=== PATIENT | male | born 1960 | race Hispanic/Latino ===

== ENCOUNTER → 2019-04-06 | Outpatient (CLI) | payer OTHER | END | disposition home or self-care (01) | LOC: RAH 10:12 | PROVIDERS: ATTEND Internal Medicine Cardiovascular Disease | DX: Z13.6 Encounter for screening for cardiovascular disorders (principal) | CPT/HCPCS: 75571 ==

== ENCOUNTER → 2019-04-13 | Outpatient (CLI) | payer OTHER | END | disposition home or self-care (01) | LOC: SHCH 10:47 | PROVIDERS: ATTEND Internal Medicine Cardiovascular Disease | DX: I08.0 Rheumatic disorders of both mitral and aortic valves (principal); I10 Essential (primary) hypertension | CPT/HCPCS: 93306 ==

== ENCOUNTER → 2019-05-25 | Outpatient (CLI) | payer OTHER ==
[~2019-05-25] VITALS: Ht 172.7 cm; Wt 98.4 kg
[~2019-05-25] MED LIST: REGADENOSON 0.4 MG/5 ML PF SYG IVP SCH
== END | disposition home or self-care (01) ==
LOC: SHCH 07:52
PROVIDERS: ATTEND Internal Medicine Cardiovascular Disease
DX: I25.10 Atherosclerotic heart disease of native coronary artery without angina pectoris (principal)
CPT/HCPCS: 78452; 93017; 96374; A9500 ×2; J2785

== ENCOUNTER 2020-11-07 08:02 | Day surgery (SDC) | payer BC, OTHER ==
[2020-11-07] VITALS (7 sets, daily range): BP systolic 104–129; BP diastolic 44–68
[~2020-11-07 08:02] MED LIST changes: +NACL 0.9% 1000ML 1,000 ML IV ONE; -REGADENOSON 0.4 MG/5 ML PF SYG IVP SCH
[2020-11-07 08:43] LABS: CREATININE 7.7 mg/dL (0.5-1.5); POTASSIUM 5.2 mmol/L (3.5-5.1)
[2020-11-07] MEDS ORDERED: ISOS30TA92 PO (09:03)
[2020-11-07] MEDS ORDERED: FENO145T26 PO (09:03)
[2020-11-07] MEDS ORDERED: FURO20TA4 PO (09:03)
[2020-11-07] MEDS ORDERED: INSU100I45 SQ (09:03)
[2020-11-07] MEDS ORDERED: INSU100V12 SQ ×2 (09:03)
[2020-11-07] MEDS ORDERED: FEBU80TA3 PO (09:03)
[2020-11-07] MEDS ORDERED: AURYXIA PO (09:03)
[2020-11-07] MEDS ORDERED: AEC81 PO (09:03)
[2020-11-07] MEDS ORDERED: METO-408 PO (09:03)
[2020-11-07] MEDS ORDERED: PROPOFOL 10 MG/ML 20ML VIAL IV ONE ×2 (09:36)
== END 2020-11-07 10:30 | disposition home or self-care (01) ==
LOC: ENDO 08:02 → DAH 08:11 → ENDO 08:11
PROVIDERS: ATTEND Internal Medicine Gastroenterology
DX: R12 Heartburn (principal); R93.3 Abnormal findings on diagnostic imaging of other parts of digestive tract; K29.70 Gastritis, unspecified, without bleeding; K21.00 Gastro-esophageal reflux disease with esophagitis, without bleeding; K29.80 Duodenitis without bleeding; E11.22 Type 2 diabetes mellitus with diabetic chronic kidney disease; I12.0 Hypertensive chronic kidney disease with stage 5 chronic kidney disease or end stage renal disease; N18.6 End stage renal disease; E78.00 Pure hypercholesterolemia, unspecified; Z20.822 Contact with and (suspected) exposure to COVID-19; Z79.4 Long term (current) use of insulin; Z79.82 Long term (current) use of aspirin; Z79.899 Other long term (current) drug therapy
CPT/HCPCS: 36415; 43239; 80048; 82948 ×2; 87635; A4215 ×2; A4221; A4222; A4223; A4606; A4620; A4657; A4663; C9803; J2704 ×2; J7030

== ENCOUNTER 2022-02-03 23:16 | Inpatient (IN) | payer MEDICARE ==
[~2022-02-03] VITALS: Ht 172.7 cm; Wt 95.3 kg
[~2022-02-03 23:16] MED LIST changes: +AEC81 PO; +AURYXIA PO; +FEBU80TA3 PO; +FENO145T26 PO; +FURO20TA4 PO; +INSU100I45 SQ; +INSU100V12 SQ; +ISOS30TA92 PO; +METO-408 PO; -NACL 0.9% 1000ML 1,000 ML IV ONE; +ROSU20TA31 PO
[2022-02-03] MEDS ORDERED: ADENOSINE 6MG VIAL IV ONE ×2 (23:44→23:51)
[2022-02-03] MEDS ORDERED: AMIODARONE 150MG VIAL ONE ×2 (23:45→23:57)
[2022-02-03] MEDS ORDERED: DILTIAZEM 25MG INJ IVP ONE ×2 (23:48→23:59)
[2022-02-04] VITALS (17 sets, daily range): BP systolic 106–143; BP diastolic 54–77
[2022-02-04 00:26] LABS: BASOPHILS % (AUTO) 0.9 % (0.0-5.0); EOSINOPHILS % (AUTO) 3.1 % (0.0-8.0); HEMATOCRIT 30.4 % (42-54); LYMPHOCYTES % (AUTO) 10.2 % (21.0-51.0); MEAN CORPUSCULAR HGB CONC 33.6 g/dL (32.0-36.0); MEAN CORPUSCULAR VOLUME 95.3 fL (79-99); MONOCYTES % (AUTO) 7.7 % (3.0-13.0); NEUTROPHILS % (AUTO) 77.6 % (40.0-77.0); PLATELET COUNT (AUTO) 172 K/uL (130-400); RED BLOOD CELL COUNT(AUTO) 3.19 MIL/uL (4.50-6.20); WHITE BLOOD COUNT (AUTO) 8.7 K/uL (4.8-10.8)
[2022-02-04 00:49] LABS: ALBUMIN 3.2 g/dL (3.5-5.0); POTASSIUM 5.5 mmol/L (3.5-5.1); TOTAL PROTEIN, SERUM 7.3 g/dL (6.0-8.3)
[2022-02-04 00:53] LABS: CREATININE 10.2 mg/dL (0.5-1.5)
[2022-02-04] MEDS ORDERED: ONDANSETRON 4MG INJ IVP PRN (03:30)
[2022-02-04] MEDS ORDERED: INSULIN HUMULIN R 100 UNIT/ML 3ML SQ PRN (03:30)
[2022-02-04] MEDS ORDERED: MORPHINE 2 MG SYG IVP PRN (03:30)
[2022-02-04] MEDS: HEPARIN 5,000 UNIT VIAL SQ SCH ×2 (04:52→17:09)
[2022-02-04] MEDS: ACETAMINOPHEN 325 MG TAB PO PRN ×3 (07:54→19:28)
[2022-02-04 08:21] LABS: EOSINOPHILS % (AUTO) 4.7 % (0.0-8.0); HEMATOCRIT 33.3 % (42-54); MEAN CORPUSCULAR HEMOGLOBIN 31.7 pg (27.0-33.0); MEAN CORPUSCULAR HGB CONC 33.3 g/dL (32.0-36.0); MEAN CORPUSCULAR VOLUME 95.1 fL (79-99); MONOCYTES % (AUTO) 7.2 % (3.0-13.0); NEUTROPHILS % (AUTO) 74.8 % (40.0-77.0); PLATELET COUNT (AUTO) 173 K/uL (130-400); RED CELL DISTRIBUTION WIDTH 13.1 % (11.0-15.5); WHITE BLOOD COUNT (AUTO) 7.7 K/uL (4.8-10.8)
[2022-02-04 08:30] LABS: HEMOGLOBIN A1C 6.6 % (4.0-6.0)
[2022-02-04 08:37] LABS: MAGNESIUM 2.3 mg/dL (1.80-2.40); POTASSIUM 5.2 mmol/L (3.5-5.1)
[2022-02-04 08:39] LABS: CREATININE 10.5 mg/dL (0.5-1.5)
[2022-02-04 10:05] LABS: APPEARANCE,URINE CLEAR (CLEAR); BILIRUBIN,URINE NEGATIVE (NEGATIVE); COLOR,URINE LIGHT-YELLOW (YELLOW); GLUCOSE, URINE (UA) 200 mg/dL (NEGATIVE); KETONES,URINE NEGATIVE (NEGATIVE); LEUKOCYTE ESTERASE ,URINE NEGATIVE Leu/uL (NEGATIVE); NITRATE,URINE NEGATIVE (NEGATIVE); PH,URINE 7.5 (5.0-8.0); PROTEIN,URINE 100 mg/dL (NEGATIVE); UROBILINOGEN,URINE 0.2 mg/dL (0.2-1.0)
[2022-02-04 10:06] LABS: RBC,URINE 0-1 /HPF (0-1); WBC,URINE 0-1 /HPF (0-1)
[2022-02-04] MEDS ORDERED: ROSU10TA28 PO (10:24)
[2022-02-04] MEDS ORDERED: SACU1TAB PO (10:24)
[2022-02-04] MEDS ORDERED: LOPERAMIDE HCL 2 MG CAP PO ONE (10:30)
[2022-02-04] MEDS: ASPIRIN 81 MG EC TAB PO SCH (10:45)
[2022-02-04] MEDS: INSULIN HUMULIN R 100 UNIT/ML 3ML SQ SCH ×3 (11:30→20:44)
[2022-02-04] MEDS ORDERED: VANCOMYCIN PROTOCOL PER PHARMACY IV SCH (17:30)
[2022-02-04] MEDS ORDERED: VANCOMYCIN 1.5 GM/250 ML BAG 250 ML IV SCH (18:00)
[2022-02-04] MEDS: ZOSYN 3.375GM +NS 50ML IV SCH (18:27)
[2022-02-04] MEDS ORDERED: COMPOUND IV REFRIGERATED 1 EACH IVSOLN MISC PRN (18:30)
[2022-02-04] MEDS: ATORVASTATIN 20 MG TABLET PO SCH (20:44)
[2022-02-04] MEDS: SACUBITRIL/VALSARTAN 1 EACH TABLET PO SCH (20:44)
[2022-02-04] MEDS ORDERED: ISOSORBIDE MONO 30MG SR TAB PO SCH (21:00)
[2022-02-05] VITALS (8 sets, daily range): BP systolic 92–118; BP diastolic 43–65
[2022-02-05 01:17] LABS: HEPATITIS B SURFACE ANTIGEN Non-Reactive (Nonreactive)
[2022-02-05] MEDS: HEPARIN 5,000 UNIT VIAL SQ SCH ×2 (03:23→15:52)
[2022-02-05] MEDS: ZOSYN 3.375GM +NS 50ML IV SCH ×2 (05:25→17:30)
[2022-02-05 06:52] LABS: POTASSIUM 4.8 mmol/L (3.5-5.1)
[2022-02-05 06:55] LABS: CREATININE 8.3 mg/dL (0.5-1.5)
[2022-02-05] MEDS: INSULIN HUMULIN R 100 UNIT/ML 3ML SQ SCH ×4 (07:30→20:38)
[2022-02-05] MEDS: FUROSEMIDE 20 MG TABLET PO SCH (08:19)
[2022-02-05] MEDS: ASPIRIN 81 MG EC TAB PO SCH (08:19)
[2022-02-05] MEDS: METOPROLOL SUCCINATE 25 MG TAB.SR.24H PO SCH (08:19)
[2022-02-05] MEDS: SACUBITRIL/VALSARTAN 1 EACH TABLET PO SCH ×2 (09:00→20:39)
[2022-02-05] MEDS ORDERED: REGADENOSON 0.4 MG/5 ML PF SYG IVP SCH (10:00)
[2022-02-05] MEDS ORDERED: IOHEXOL 350 MG/ML 100ML INFUS..BTL IV ONE (11:34)
[2022-02-05] MEDS: ATORVASTATIN 20 MG TABLET PO SCH (20:39)
[2022-02-06] VITALS (18 sets, daily range): BP systolic 98–141; BP diastolic 47–65
[2022-02-06] MEDS: HEPARIN 5,000 UNIT VIAL SQ SCH ×2 (03:45→15:57)
[2022-02-06] MEDS: ZOSYN 3.375GM +NS 50ML IV SCH ×2 (06:13→17:47)
[2022-02-06] MEDS: INSULIN HUMULIN R 100 UNIT/ML 3ML SQ SCH ×4 (06:13→22:11)
[2022-02-06] MEDS: SACUBITRIL/VALSARTAN 1 EACH TABLET PO SCH ×2 (08:39→20:33)
[2022-02-06] MEDS: ASPIRIN 81 MG EC TAB PO SCH (08:39)
[2022-02-06] MEDS: FUROSEMIDE 20 MG TABLET PO SCH (08:39)
[2022-02-06] MEDS: METOPROLOL SUCCINATE 25 MG TAB.SR.24H PO SCH (13:27)
[2022-02-06] MEDS: ATORVASTATIN 20 MG TABLET PO SCH (20:33)
[2022-02-07 03:51] VITALS: BP 111/66
[2022-02-07] MEDS: HEPARIN 5,000 UNIT VIAL SQ SCH ×2 (06:16→16:07)
[2022-02-07] MEDS: ZOSYN 3.375GM +NS 50ML IV SCH ×2 (06:16→16:48)
[2022-02-07] MEDS: INSULIN HUMULIN R 100 UNIT/ML 3ML SQ SCH ×4 (06:16→20:55)
[2022-02-07 07:30] VITALS: BP 95/44
[2022-02-07] MEDS: METOPROLOL SUCCINATE 25 MG TAB.SR.24H PO SCH (09:00)
[2022-02-07] MEDS: FUROSEMIDE 20 MG TABLET PO SCH (09:00)
[2022-02-07] MEDS: ASPIRIN 81 MG EC TAB PO SCH (09:00)
[2022-02-07] MEDS: SACUBITRIL/VALSARTAN 1 EACH TABLET PO SCH ×2 (09:00→20:50)
[2022-02-07 11:00] VITALS: BP 120/54
[2022-02-07 16:00] VITALS: BP 99/47
[2022-02-07 20:14] VITALS: BP 118/65
[2022-02-07] MEDS: ATORVASTATIN 20 MG TABLET PO SCH (20:50)
[2022-02-07] MEDS: METOCLOPRAMIDE 10 MG TABLET PO SCH (20:50)
[2022-02-07 23:34] VITALS: BP 111/63
[2022-02-08] VITALS (19 sets, daily range): BP systolic 89–136; BP diastolic 44–67
[2022-02-08 04:42] LABS: HEMATOCRIT 33.6 % (42-54); MEAN CORPUSCULAR HEMOGLOBIN 31.4 pg (27.0-33.0); MEAN CORPUSCULAR HGB CONC 33.9 g/dL (32.0-36.0); MEAN CORPUSCULAR VOLUME 92.6 fL (79-99); RED BLOOD CELL COUNT(AUTO) 3.63 MIL/uL (4.50-6.20); RED CELL DISTRIBUTION WIDTH 12.7 % (11.0-15.5)
[2022-02-08 05:01] LABS: MAGNESIUM 2.4 mg/dL (1.80-2.40); POTASSIUM 4.4 mmol/L (3.5-5.1)
[2022-02-08 05:02] LABS: CREATININE 9.4 mg/dL (0.5-1.5)
[2022-02-08] MEDS: ZOSYN 3.375GM +NS 50ML IV SCH (05:25)
[2022-02-08] MEDS: HEPARIN 5,000 UNIT VIAL SQ SCH (05:32)
[2022-02-08] MEDS: INSULIN HUMULIN R 100 UNIT/ML 3ML SQ SCH ×2 (06:53→11:30)
[2022-02-08] MEDS: METOPROLOL SUCCINATE 25 MG TAB.SR.24H PO SCH (09:00)
[2022-02-08] MEDS: SACUBITRIL/VALSARTAN 1 EACH TABLET PO SCH (09:42)
[2022-02-08] MEDS: METOCLOPRAMIDE 10 MG TABLET PO SCH ×2 (09:43→12:00)
[2022-02-08] MEDS: FUROSEMIDE 20 MG TABLET PO SCH (09:43)
[2022-02-08] MEDS: ASPIRIN 81 MG EC TAB PO SCH (12:00)
[2022-02-08] MEDS ORDERED: METO10TA41 PO ×2 (16:56→16:58)
== END 2022-02-08 18:20 | disposition home or self-care (01) | DRG 193 ==
LOC: EDH 23:16 → EDHIP 02-04 03:22 → 4CH 02-04 11:03 → 4DH 02-08 14:00 → 4CH 02-08 14:01
PROVIDERS: ADMIT Internal Medicine Infectious Disease; ATTEND Internal Medicine Infectious Disease
PROC: 5A1D70Z Performance of Urinary Filtration, Intermittent, Less than 6 Hours Per Day (ICD-10-PCS; 2022-02-04)
PROC: 5A1D70Z Performance of Urinary Filtration, Intermittent, Less than 6 Hours Per Day (ICD-10-PCS; principal; 2022-02-06)
PROC: 5A1D70Z Performance of Urinary Filtration, Intermittent, Less than 6 Hours Per Day (ICD-10-PCS; 2022-02-08)
DX: J18.9 Pneumonia, unspecified organism (principal); N18.6 End stage renal disease; I13.2 Hypertensive heart and chronic kidney disease with heart failure and with stage 5 chronic kidney disease, or end stage renal disease; E87.1 Hypo-osmolality and hyponatremia; I25.110 Atherosclerotic heart disease of native coronary artery with unstable angina pectoris; N39.0 Urinary tract infection, site not specified; I50.42 Chronic combined systolic (congestive) and diastolic (congestive) heart failure; Z20.822 Contact with and (suspected) exposure to COVID-19; E87.5 Hyperkalemia; E11.22 Type 2 diabetes mellitus with diabetic chronic kidney disease; K31.84 Gastroparesis; E11.43 Type 2 diabetes mellitus with diabetic autonomic (poly)neuropathy; D63.1 Anemia in chronic kidney disease; T46.2X5A Adverse effect of other antidysrhythmic drugs, initial encounter; I95.2 Hypotension due to drugs; E66.9 Obesity, unspecified; E78.00 Pure hypercholesterolemia, unspecified; Z99.2 Dependence on renal dialysis; Z83.3 Family history of diabetes mellitus; Z82.49 Family history of ischemic heart disease and other diseases of the circulatory system; Z68.31 Body mass index [BMI] 31.0-31.9, adult
CPT/HCPCS: 36415; 71045; 71270; 78264; 78452; 80048; 80053; 81001; 82550; 82948; 83036; 83605; 83690; 83735; 83874; 84484; 85025; 85027; 86706; 87040; 87077; 87088; 87186; 87340; 87635; 87804; 90935; 93005; 93017; 93306; 93356; 96374; A9500; A9541; C9803; G0378; J0153; J0282; J1644; J1815; J2405; J2543; J2785; J3490; Q9967

== ENCOUNTER → 2022-05-27 | Outpatient (CLI) | payer MEDICARE ==
[~2022-05-27] MED LIST changes: +METO10TA41 PO; +ROSU10TA28 PO; -ROSU20TA31 PO; +SACU1TAB PO
[2022-05-27 09:43] LABS: CREATININE 5.5 mg/dL (0.5-1.5)
== END | disposition home or self-care (01) ==
LOC: LAB 08:43
PROVIDERS: ATTEND Otolaryngology Plastic Surgery within the Head & Neck
DX: H90.3 Sensorineural hearing loss, bilateral (principal)
CPT/HCPCS: 36415; 82565; 84520

== ENCOUNTER → 2022-06-11 | Outpatient (CLI) | payer MEDICARE ==
[~2022-06-11] MED LIST changes: +IOHEXOL 350 MG/ML 100ML INFUS..BTL IV ONE
== END | disposition home or self-care (01) ==
LOC: RAH 11:49
PROVIDERS: ATTEND Otolaryngology Plastic Surgery within the Head & Neck
DX: H90.3 Sensorineural hearing loss, bilateral (principal)
CPT/HCPCS: 70470; 70482; Q9967

== ENCOUNTER 2022-11-05 16:08 | Inpatient (IN) | payer MEDICARE ==
[~2022-11-05] VITALS: Ht 167.6 cm; Wt 89.6 kg
[~2022-11-05 16:08] MED LIST changes: -IOHEXOL 350 MG/ML 100ML INFUS..BTL IV ONE
[2022-11-05] MEDS ORDERED: ACETAMINOPHEN 500 MG TABLET ONE (16:57)
[2022-11-05] MEDS ORDERED: CEFTRIAXONE 2GM VIAL IVPB ONE (17:00)
[2022-11-05] MEDS ORDERED: 0.9%NACL 1000ML 250 ML IV ONE (17:00)
[2022-11-05] MEDS ORDERED: ACETAMINOPHEN 500 MG TABLET PO ONE (17:30)
[2022-11-05 17:36] LABS: BASOPHILS % (AUTO) 0.6 % (0.0-5.0); EOSINOPHILS % (AUTO) 0.9 % (0.0-8.0); HEMATOCRIT 28.9 % (42-54); LYMPHOCYTES % (AUTO) 5.3 % (21.0-51.0); MEAN CORPUSCULAR HEMOGLOBIN 32.3 pg (27.0-33.0); MEAN CORPUSCULAR HGB CONC 32.2 g/dL (32.0-36.0); MEAN CORPUSCULAR VOLUME 100.3 fL (79-99); MONOCYTES % (AUTO) 7.5 % (3.0-13.0); NEUTROPHILS % (AUTO) 84.8 % (40.0-77.0); PLATELET COUNT (AUTO) 110 K/uL (130-400); RED BLOOD CELL COUNT(AUTO) 2.88 MIL/uL (4.50-6.20); RED CELL DISTRIBUTION WIDTH 14.8 % (11.0-15.5); WHITE BLOOD COUNT (AUTO) 12.7 K/uL (4.8-10.8)
[2022-11-05 17:56] LABS: POTASSIUM 4.5 mmol/L (3.5-5.1)
[2022-11-05 18:05] LABS: ALBUMIN 3.3 g/dL (3.5-5.0); TOTAL PROTEIN, SERUM 7.7 g/dL (6.0-8.3)
[2022-11-05] MEDS ORDERED: MORPHINE 2 MG SYG IVP PRN (19:00)
[2022-11-05] MEDS ORDERED: ASPIRIN 325MG TAB PO ONE (19:00)
[2022-11-05] MEDS ORDERED: ACETAMINOPHEN 325 MG TAB PO PRN ×2 (19:00→20:30)
[2022-11-05] MEDS ORDERED: ENOXAPARIN SODIUM 100 MG/1 ML SQ ONE (19:00)
[2022-11-05] MEDS ORDERED: 0.9%NACL 1000ML 1,914 ML IV ONE (19:00)
[2022-11-05] MEDS ORDERED: CLOPIDOGREL 300MG TAB PO ONE (19:00)
[2022-11-05] MEDS ORDERED: NOREPINEPHRIN 4MG/NS 250ML 250 ML IV SCH ×2 (19:30→21:30)
[2022-11-05 19:37] LABS: ABG BASE EXCESS -1.1 mmol/L (-2.0-3.0); ABG OXYGEN SATURATION 95.4 % (95.0-99.0); ABG PCO2 35 mmHg (35-48)
[2022-11-05 19:44] LABS: INR 1.24 (0.85-1.15); PROTHROMBIN TIME 13.4 SEC (9.6-11.6)
[2022-11-05 19:45] LABS: PARTIAL THROMBOPLASTIN TIME 35.6 SEC (26.3-35.5)
[2022-11-05] MEDS: HEPARIN 25,000 UNITS/250ML D5W 250 ML IV SCH (20:20)
[2022-11-05] MEDS ORDERED: HEPARIN 5,000 UNIT VIAL SQ PRN (20:30)
[2022-11-05] MEDS ORDERED: PHENYLEPHRINE HCL 10 MG in 0.9% NACL 250ML 250 ML IV PRN (20:30)
[2022-11-05] MEDS ORDERED: DEXTROSE 50%-WATER 50 ML DISP.SYRIN IV PRN (20:30)
[2022-11-05] MEDS ORDERED: ACETAMINOPHEN 650 MG SUPPOSITORY RC PRN (20:30)
[2022-11-05] MEDS ORDERED: GLUCAGON 1MG KIT 1 MG ML IM PRN (20:30)
[2022-11-05] MEDS: CEFTRIAXONE 1G VIAL IVPB SCH (20:48)
[2022-11-05] MEDS: 0.9%NACL 1000ML 1,000 ML IV SCH (20:49)
[2022-11-05] MEDS: ATORVASTATIN 40 MG TABLET PO SCH (20:49)
[2022-11-05] MEDS: DOXYCYCLINE 100MG+NS 250ML IV SCH (20:49)
[2022-11-05] MEDS: INSULIN HUMULIN R 100 UNIT/ML 3ML SQ SCH (21:00)
[2022-11-06] VITALS (13 sets, daily range): BP systolic 97–135; BP diastolic 47–68
[2022-11-06] MEDS: HEPARIN 25,000 UNITS/250ML D5W 250 ML IV SCH (03:30)
[2022-11-06] MEDS: 0.9%NACL 1000ML 1,000 ML IV SCH ×2 (06:29→16:21)
[2022-11-06 07:27] LABS: BASOPHILS % (AUTO) 0.8 % (0.0-5.0); EOSINOPHILS % (AUTO) 3.3 % (0.0-8.0); HEMATOCRIT 31.6 % (42-54); LYMPHOCYTES % (AUTO) 8.1 % (21.0-51.0); MEAN CORPUSCULAR HEMOGLOBIN 32.2 pg (27.0-33.0); MEAN CORPUSCULAR HGB CONC 31.3 g/dL (32.0-36.0); MEAN CORPUSCULAR VOLUME 102.9 fL (79-99); MONOCYTES % (AUTO) 9.1 % (3.0-13.0); NEUTROPHILS % (AUTO) 77.8 % (40.0-77.0); PLATELET COUNT (AUTO) 121 K/uL (130-400); RED BLOOD CELL COUNT(AUTO) 3.07 MIL/uL (4.50-6.20); RED CELL DISTRIBUTION WIDTH 15.1 % (11.0-15.5); WHITE BLOOD COUNT (AUTO) 19.3 K/uL (4.8-10.8)
[2022-11-06] MEDS: INSULIN HUMULIN R 100 UNIT/ML 3ML SQ SCH ×4 (07:30→21:00)
[2022-11-06 07:37] LABS: CREATININE 7.3 mg/dL (0.5-1.5); MAGNESIUM 1.9 mg/dL (1.80-2.40); POTASSIUM 5.2 mmol/L (3.5-5.1); TOTAL PROTEIN, SERUM 7.7 g/dL (6.0-8.3)
[2022-11-06] MEDS: CLOPIDOGREL 75MG TAB PO SCH (08:12)
[2022-11-06] MEDS: PANTOPRAZOLE 40 MG/VIAL IVP SCH (08:12)
[2022-11-06] MEDS: ASPIRIN 81 MG EC TAB PO SCH (08:12)
[2022-11-06] MEDS: DOXYCYCLINE 100MG+NS 250ML IV SCH ×2 (08:12→18:52)
[2022-11-06] MEDS: MIDODRINE HCL 5 MG TABLET PO PRN (08:13)
[2022-11-06 11:57] LABS: INR 1.4 (0.85-1.15)
[2022-11-06 12:26] LABS: PARTIAL THROMBOPLASTIN TIME 129.2 SEC (26.3-35.5)
[2022-11-06] MEDS ORDERED: ALBUMIN (HUMAN) 25% 100 ML IV PRN (14:00)
[2022-11-06] MEDS ORDERED: VANCOMYCIN PROTOCOL PER PHARMACY IV SCH (14:00)
[2022-11-06] MEDS ORDERED: VANCOMYCIN 1.5 GM/250 ML BAG 250 ML IV ONE (15:00)
[2022-11-06] MEDS ORDERED: MIDODRINE HCL 5 MG TABLET PO SCH (16:32)
[2022-11-06] MEDS ORDERED: OMEP40CA21 PO (17:42)
[2022-11-06] MEDS ORDERED: FOLI0.8T3 PO (17:42)
[2022-11-06] MEDS ORDERED: MIDO5TAB4 PO (17:42)
[2022-11-06] MEDS ORDERED: GLIP5TAB11 PO (17:42)
[2022-11-06] MEDS ORDERED: ALLO100T PO (17:42)
[2022-11-06 17:49] LABS: INR 1.45 (0.85-1.15); PROTHROMBIN TIME 15.5 SEC (9.6-11.6)
[2022-11-06 17:50] LABS: PARTIAL THROMBOPLASTIN TIME 64.6 SEC (26.3-35.5)
[2022-11-06] MEDS ORDERED: CYAN100099 PO (17:50)
[2022-11-06] MEDS ORDERED: SEVE800T27 PO (17:50)
[2022-11-06] MEDS ORDERED: MUPI22OI2 TP (17:50)
[2022-11-06] MEDS ORDERED: ROSU20TA73 PO (17:50)
[2022-11-06] MEDS ORDERED: MULT-1203 PO (17:50)
[2022-11-06] MEDS: ONDANSETRON 4MG INJ IVP PRN (18:34)
[2022-11-06] MEDS: CEFTRIAXONE 1G VIAL IVPB SCH (18:52)
[2022-11-06] MEDS: MIDODRINE HCL 5 MG TABLET PO SCH (18:54)
[2022-11-06] MEDS: ATORVASTATIN 40 MG TABLET PO SCH (18:54)
[2022-11-06 23:05] LABS: INR 1.41 (0.85-1.15); PROTHROMBIN TIME 15.1 SEC (9.6-11.6)
[2022-11-06 23:06] LABS: PARTIAL THROMBOPLASTIN TIME 67.8 SEC (26.3-35.5)
[2022-11-07] VITALS (31 sets, daily range): BP systolic 57–151; BP diastolic 17–105
[2022-11-07] MEDS ORDERED: NOREPINEPHRIN 4MG/NS 250ML 250 ML IV ONE (02:44)
[2022-11-07] MEDS: NOREPINEPHRIN 4MG/NS 250ML 250 ML IV SCH ×2 (05:00→17:18)
[2022-11-07 06:59] LABS: BASOPHILS % (AUTO) 0.8 % (0.0-5.0); EOSINOPHILS % (AUTO) 4.8 % (0.0-8.0); HEMATOCRIT 30.7 % (42-54); LYMPHOCYTES % (AUTO) 8.3 % (21.0-51.0); MEAN CORPUSCULAR HGB CONC 32.2 g/dL (32.0-36.0); MEAN CORPUSCULAR VOLUME 99.4 fL (79-99); MONOCYTES % (AUTO) 9.8 % (3.0-13.0); NEUTROPHILS % (AUTO) 75.5 % (40.0-77.0); NUCLEATED RED BLOOD CELLS 0.8 % (0.0-0.19); PLATELET COUNT (AUTO) 164 K/uL (130-400); RED BLOOD CELL COUNT(AUTO) 3.09 MIL/uL (4.50-6.20); RED CELL DISTRIBUTION WIDTH 15.2 % (11.0-15.5); WHITE BLOOD COUNT (AUTO) 21.5 K/uL (4.8-10.8)
[2022-11-07 07:13] LABS: HEMOGLOBIN A1C 5.3 % (4.0-6.0)
[2022-11-07 07:26] LABS: CREATININE 5.5 mg/dL (0.5-1.5); MAGNESIUM 1.8 mg/dL (1.80-2.40); POTASSIUM 4.5 mmol/L (3.5-5.1); THYROID STIMULATING HORMONE 2.92 uIU/mL (0.36-3.74); TOTAL PROTEIN, SERUM 7.5 g/dL (6.0-8.3)
[2022-11-07] MEDS: INSULIN HUMULIN R 100 UNIT/ML 3ML SQ SCH ×4 (07:30→21:00)
[2022-11-07] MEDS: ASPIRIN 81 MG EC TAB PO SCH (09:23)
[2022-11-07] MEDS: PANTOPRAZOLE 40 MG/VIAL IVP SCH (09:23)
[2022-11-07] MEDS: MIDODRINE HCL 5 MG TABLET PO SCH ×3 (09:23→21:33)
[2022-11-07] MEDS: CLOPIDOGREL 75MG TAB PO SCH (09:23)
[2022-11-07] MEDS: DOXYCYCLINE 100MG+NS 250ML IV SCH ×2 (09:23→21:34)
[2022-11-07 10:05] LABS: HEPATITIS B SURFACE ANTIGEN Non-Reactive (Nonreactive)
[2022-11-07] MEDS: ONDANSETRON 4MG INJ IVP PRN (13:20)
[2022-11-07] MEDS ORDERED: MAGNESIUM 2GM PREMIX 50ML 50 ML IV ONE (13:46)
[2022-11-07] MEDS: MAGNESIUM 2GM PREMIX 50ML 50 ML IV PRN (13:55)
[2022-11-07] MEDS ORDERED: NOREPINEPHRINE 16MG/NS 250ML PREMIX IV SCH (18:30)
[2022-11-07] MEDS ORDERED: PHARMACY COMMUNICATION MISC SCH (19:00)
[2022-11-07] MEDS: NOREPINEPHRINE BITARTRATE 32 MG in 0.9% NACL 250ML 250 ML IV SCH (21:07)
[2022-11-07] MEDS: ATORVASTATIN 40 MG TABLET PO SCH (21:33)
[2022-11-07] MEDS: CEFTRIAXONE 1G VIAL IVPB SCH (21:34)
[2022-11-07] MEDS: 0.9%NACL 10ML VIAL IV SCH (22:36)
[2022-11-07 23:36] LABS: INR 1.28 (0.85-1.15); PROTHROMBIN TIME 13.8 SEC (9.6-11.6)
[2022-11-07 23:38] LABS: PARTIAL THROMBOPLASTIN TIME 68.1 SEC (26.3-35.5)
[2022-11-08] VITALS (91 sets, daily range): BP systolic 49–173; BP diastolic 16–117
[2022-11-08 03:55] LABS: BASOPHILS % (AUTO) 1.1 % (0.0-5.0); EOSINOPHILS % (AUTO) 12.6 % (0.0-8.0); HEMATOCRIT 28.8 % (42-54); LYMPHOCYTES % (AUTO) 10.3 % (21.0-51.0); MEAN CORPUSCULAR HEMOGLOBIN 31.6 pg (27.0-33.0); MEAN CORPUSCULAR HGB CONC 31.6 g/dL (32.0-36.0); MONOCYTES % (AUTO) 10.6 % (3.0-13.0); NEUTROPHILS % (AUTO) 64.1 % (40.0-77.0); NUCLEATED RED BLOOD CELLS 0.6 % (0.0-0.19); PLATELET COUNT (AUTO) 156 K/uL (130-400); RED BLOOD CELL COUNT(AUTO) 2.88 MIL/uL (4.50-6.20)
[2022-11-08 04:17] LABS: ALBUMIN 2.8 g/dL (3.5-5.0); CREATININE 6.4 mg/dL (0.5-1.5); MAGNESIUM 2.1 mg/dL (1.80-2.40); POTASSIUM 3.5 mmol/L (3.5-5.1)
[2022-11-08] MEDS: INSULIN HUMULIN R 100 UNIT/ML 3ML SQ SCH ×4 (07:30→20:54)
[2022-11-08] MEDS: ASPIRIN 81 MG EC TAB PO SCH (09:00)
[2022-11-08] MEDS: MIDODRINE HCL 5 MG TABLET PO SCH ×3 (09:13→20:53)
[2022-11-08] MEDS: DOXYCYCLINE 100MG+NS 250ML IV SCH ×2 (09:13→20:53)
[2022-11-08] MEDS: CLOPIDOGREL 75MG TAB PO SCH (09:13)
[2022-11-08] MEDS: 0.9%NACL 10ML VIAL IV SCH ×2 (09:14→20:54)
[2022-11-08] MEDS: PANTOPRAZOLE 40 MG/VIAL IVP SCH (09:14)
[2022-11-08] MEDS: HEPARIN 25,000 UNITS/250ML D5W 250 ML IV SCH (10:50)
[2022-11-08] MEDS ORDERED: VANCOMYCIN 1G/250ML KIT 250 ML IV SCH (16:00)
[2022-11-08 16:11] LABS: TYPHUS FEVER IGG <1:64 (Neg:<1:64); TYPHUS FEVER IGM <1:64 (Neg:<1:64)
[2022-11-08] MEDS: NOREPINEPHRINE BITARTRATE 32 MG in 0.9% NACL 250ML 250 ML IV SCH (16:56)
[2022-11-08] MEDS: LACTULOSE 20 GM/30 ML UDCUP PO SCH ×2 (20:00→20:53)
[2022-11-08] MEDS: CEFTRIAXONE 1G VIAL IVPB SCH (20:53)
[2022-11-08] MEDS: ATORVASTATIN 40 MG TABLET PO SCH (21:20)
[2022-11-09] VITALS (62 sets, daily range): BP systolic 80–160; BP diastolic 15–112
[2022-11-09] MEDS: ONDANSETRON 4MG INJ IVP PRN ×2 (03:51→21:59)
[2022-11-09 04:23] LABS: BASOPHILS % (AUTO) 1.1 % (0.0-5.0); EOSINOPHILS % (AUTO) 13.7 % (0.0-8.0); LYMPHOCYTES % (AUTO) 11.9 % (21.0-51.0); MEAN CORPUSCULAR HEMOGLOBIN 31.5 pg (27.0-33.0); MEAN CORPUSCULAR HGB CONC 33.1 g/dL (32.0-36.0); MEAN CORPUSCULAR VOLUME 95.2 fL (79-99); MONOCYTES % (AUTO) 11.8 % (3.0-13.0); NUCLEATED RED BLOOD CELLS 1.7 % (0.0-0.19); PLATELET COUNT (AUTO) 143 K/uL (130-400); RED BLOOD CELL COUNT(AUTO) 2.73 MIL/uL (4.50-6.20); RED CELL DISTRIBUTION WIDTH 15.3 % (11.0-15.5)
[2022-11-09 04:43] LABS: CREATININE 5.2 mg/dL (0.5-1.5); MAGNESIUM 1.8 mg/dL (1.80-2.40); PHOSPHORUS 3.8 mg/dL (2.5-4.9); POTASSIUM 3.9 mmol/L (3.5-5.1); TOTAL PROTEIN, SERUM 6.7 g/dL (6.0-8.3)
[2022-11-09 04:44] LABS: INR 1.18 (0.85-1.15); PROTHROMBIN TIME 13.5 SEC (9.6-11.6)
[2022-11-09 04:45] LABS: PARTIAL THROMBOPLASTIN TIME 58.6 SEC (26.3-35.5)
[2022-11-09 05:28] LABS: ERYTHROCYTE SEDIMENTATION RATE 80 MM/HR (0-20)
[2022-11-09] MEDS: INSULIN HUMULIN R 100 UNIT/ML 3ML SQ SCH ×4 (05:35→21:00)
[2022-11-09] MEDS: NALOXONE HCL 0.4 MG/1 ML ML IVP SCH (07:30)
[2022-11-09] MEDS ORDERED: LIDOCAINE HCL 2% VISCOUS 15 ML UDCUP PO ONE (07:30)
[2022-11-09] MEDS ORDERED: MIDAZOLAM HCL 1 MG/ML 5ML VIAL IVP ONE (07:30)
[2022-11-09] MEDS ORDERED: PHARMACY COMMUNICATION MISC SCH (07:30)
[2022-11-09] MEDS ORDERED: FLUMAZENIL 0.1MG/1ML 5ML VIAL IV SCH (07:30)
[2022-11-09] MEDS ORDERED: MEPERIDINE-PF 25 MG/ML SYG IVP ONE (07:30)
[2022-11-09] MEDS ORDERED: MIDAZOLAM HCL 1 MG/ML 2ML VIAL IVP ONE (08:00)
[2022-11-09] MEDS: MIDODRINE HCL 5 MG TABLET PO SCH ×3 (08:42→21:06)
[2022-11-09] MEDS: LACTULOSE 20 GM/30 ML UDCUP PO SCH ×3 (08:42→12:29)
[2022-11-09] MEDS: CLOPIDOGREL 75MG TAB PO SCH (08:42)
[2022-11-09] MEDS: PANTOPRAZOLE 40 MG/VIAL IVP SCH (08:42)
[2022-11-09] MEDS: ASPIRIN 81 MG EC TAB PO SCH (08:42)
[2022-11-09] MEDS: DOXYCYCLINE 100MG+NS 250ML IV SCH (08:43)
[2022-11-09] MEDS: 0.9%NACL 10ML VIAL IV SCH ×2 (08:43→21:07)
[2022-11-09] MEDS ORDERED: PEG 3350/NA SULF,BICARB,CL/KCL 4000 ML SOLN PO SCH (14:00)
[2022-11-09] MEDS: NOREPINEPHRINE BITARTRATE 32 MG in 0.9% NACL 250ML 250 ML IV SCH (16:30)
[2022-11-09] MEDS ORDERED: VANCOMYCIN 1G/250ML KIT 250 ML IV SCH (17:32)
[2022-11-09] MEDS: CEFTRIAXONE 1G VIAL IVPB SCH (21:05)
[2022-11-09] MEDS: ATORVASTATIN 40 MG TABLET PO SCH (21:07)
[2022-11-10] VITALS (81 sets, daily range): BP systolic 65–148; BP diastolic 23–102
[2022-11-10 04:35] LABS: BASOPHILS % (AUTO) 1.5 % (0.0-5.0); EOSINOPHILS % (AUTO) 5.5 % (0.0-8.0); LYMPHOCYTES % (AUTO) 11.1 % (21.0-51.0); MEAN CORPUSCULAR HGB CONC 31.9 g/dL (32.0-36.0); MEAN CORPUSCULAR VOLUME 100.3 fL (79-99); NEUTROPHILS % (AUTO) 63.5 % (40.0-77.0); PLATELET COUNT (AUTO) 169 K/uL (130-400); RED BLOOD CELL COUNT(AUTO) 3.19 MIL/uL (4.50-6.20); RED CELL DISTRIBUTION WIDTH 15.8 % (11.0-15.5); WHITE BLOOD COUNT (AUTO) 20.9 K/uL (4.8-10.8)
[2022-11-10 04:58] LABS: CREATININE 6.5 mg/dL (0.5-1.5); POTASSIUM 5.1 mmol/L (3.5-5.1)
[2022-11-10] MEDS: NOREPINEPHRINE BITARTRATE 32 MG in 0.9% NACL 250ML 250 ML IV SCH (05:21)
[2022-11-10] MEDS: INSULIN HUMULIN R 100 UNIT/ML 3ML SQ SCH ×4 (05:55→20:40)
[2022-11-10] MEDS: NALOXONE HCL 0.4 MG/1 ML ML IVP SCH (07:30)
[2022-11-10] MEDS ORDERED: KETAMINE 50MG/ML SYRINGE 50 MG/ML DISP.SYRIN ONE (08:43)
[2022-11-10] MEDS ORDERED: MIDAZOLAM HCL 1 MG/ML 2ML VIAL ONE (08:43)
[2022-11-10] MEDS ORDERED: PROPOFOL 10 MG/ML 20ML VIAL IV ONE ×2 (08:43→10:03)
[2022-11-10] MEDS ORDERED: LIDOCAINE PF 100MG/5ML (2%) SYRINGE 5ML ONE (08:44)
[2022-11-10] MEDS: CLOPIDOGREL 75MG TAB PO SCH (09:00)
[2022-11-10] MEDS: PANTOPRAZOLE 40 MG/VIAL IVP SCH (09:00)
[2022-11-10] MEDS: ASPIRIN 81 MG EC TAB PO SCH (09:00)
[2022-11-10] MEDS: 0.9%NACL 10ML VIAL IV SCH ×2 (09:00→20:40)
[2022-11-10] MEDS ORDERED: 0.9%NACL 1000ML 1,000 ML IV ONE (10:33)
[2022-11-10 12:07] LABS: ALBUMIN 2.8 g/dL (3.5-5.0); CREATININE 6.3 mg/dL (0.5-1.5); TOTAL PROTEIN, SERUM 6.3 g/dL (6.0-8.3)
[2022-11-10] MEDS: MIDODRINE HCL 5 MG TABLET PO SCH ×3 (12:29→20:40)
[2022-11-10] MEDS: MIDODRINE HCL 5 MG TABLET PO PRN (12:34)
[2022-11-10] MEDS ORDERED: INSULIN REGULAR, HUMAN 3ML 100 UNIT in 0.9%NACL 100ML 100 ML IV SCH ×2 (14:00)
[2022-11-10] MEDS ORDERED: MAGNESIUM 2GM PREMIX 50ML 50 ML IV SCH (14:00)
[2022-11-10] MEDS ORDERED: MANNITOL 20% IV SCH (14:00)
[2022-11-10] MEDS ORDERED: POTASSIUM CHLORIDE 10MEQ/100ML 100 ML IV PRN (14:00)
[2022-11-10] MEDS ORDERED: 0.9%NACL 1000ML 1,000 ML IV SCH (14:00)
[2022-11-10] MEDS ORDERED: D5W-1/2 NS/20MEQ KCL 1,000 ML IV SCH (14:00)
[2022-11-10] MEDS ORDERED: 0.9% NACL 500ML IV.SOLN 500 ML IV SCH (14:00)
[2022-11-10 16:06] LABS: CREATININE 6.7 mg/dL (0.5-1.5); POTASSIUM 4.2 mmol/L (3.5-5.1)
[2022-11-10 20:14] LABS: POTASSIUM 4.4 mmol/L (3.5-5.1)
[2022-11-10] MEDS: ATORVASTATIN 40 MG TABLET PO SCH (20:40)
[2022-11-10] MEDS: CEFTRIAXONE 1G VIAL IVPB SCH (20:40)
[2022-11-11] VITALS (87 sets, daily range): BP systolic 91–137; BP diastolic 38–69
[2022-11-11 00:52] LABS: CREATININE 7.1 mg/dL (0.5-1.5); POTASSIUM 4.4 mmol/L (3.5-5.1)
[2022-11-11 04:39] LABS: MEAN CORPUSCULAR HEMOGLOBIN 31.3 pg (27.0-33.0); MEAN CORPUSCULAR HGB CONC 31.3 g/dL (32.0-36.0); NUCLEATED RED BLOOD CELLS 3.9 % (0.0-0.19); RED CELL DISTRIBUTION WIDTH 15.9 % (11.0-15.5); WHITE BLOOD COUNT (AUTO) 13.7 K/uL (4.8-10.8)
[2022-11-11 04:51] LABS: CREATININE 7.3 mg/dL (0.5-1.5); MAGNESIUM 1.8 mg/dL (1.80-2.40); POTASSIUM 4.1 mmol/L (3.5-5.1); VANCOMYCIN LEVEL 17.2 mcg/mL (18.0-26.0)
[2022-11-11] MEDS: INSULIN HUMULIN R 100 UNIT/ML 3ML SQ SCH ×4 (06:48→20:45)
[2022-11-11] MEDS: NALOXONE HCL 0.4 MG/1 ML ML IVP SCH (07:30)
[2022-11-11 08:18] LABS: CREATININE 7.2 mg/dL (0.5-1.5); POTASSIUM 4.2 mmol/L (3.5-5.1)
[2022-11-11] MEDS: 0.9%NACL 10ML VIAL IV SCH ×2 (09:03→20:45)
[2022-11-11] MEDS: ASPIRIN 81 MG EC TAB PO SCH (09:03)
[2022-11-11] MEDS: PANTOPRAZOLE 40 MG/VIAL IVP SCH (09:03)
[2022-11-11] MEDS: CLOPIDOGREL 75MG TAB PO SCH (09:04)
[2022-11-11] MEDS: MIDODRINE HCL 5 MG TABLET PO SCH ×3 (09:04→20:46)
[2022-11-11] MEDS ORDERED: INSULIN GLARGINE 100 UNITS/ML 10 ML VIAL SQ ONE (09:57)
[2022-11-11] MEDS ORDERED: VANCOMYCIN 1.25 GM/250 ML BAG 250 ML IV SCH (16:00)
[2022-11-11] MEDS: NOREPINEPHRINE BITARTRATE 32 MG in 0.9% NACL 250ML 250 ML IV SCH (20:44)
[2022-11-11] MEDS: ATORVASTATIN 40 MG TABLET PO SCH (20:45)
[2022-11-11] MEDS: CEFTRIAXONE 1G VIAL IVPB SCH (20:45)
[2022-11-11] MEDS: ENOXAPARIN SODIUM 30 MG/0.3 ML SQ SCH (20:48)
[2022-11-11] MEDS ORDERED: INSULIN GLARGINE 100 UNITS/ML 10 ML VIAL SQ SCH (21:00)
[2022-11-11] MEDS ORDERED: VANCOMYCIN 1G/250ML KIT 250 ML IV SCH (22:00)
[2022-11-12] VITALS (88 sets, daily range): BP systolic 0–159; BP diastolic 0–90
[2022-11-12 04:36] LABS: BASOPHILS % (AUTO) 1.1 % (0.0-5.0); EOSINOPHILS % (AUTO) 19.9 % (0.0-8.0); HEMATOCRIT 30.7 % (42-54); LYMPHOCYTES % (AUTO) 14.6 % (21.0-51.0); MEAN CORPUSCULAR HEMOGLOBIN 31.6 pg (27.0-33.0); MEAN CORPUSCULAR HGB CONC 31.9 g/dL (32.0-36.0); MONOCYTES % (AUTO) 10.8 % (3.0-13.0); NEUTROPHILS % (AUTO) 50.3 % (40.0-77.0); NUCLEATED RED BLOOD CELLS 2.6 % (0.0-0.19); PLATELET COUNT (AUTO) 138 K/uL (130-400); RED CELL DISTRIBUTION WIDTH 16.6 % (11.0-15.5); WHITE BLOOD COUNT (AUTO) 10.5 K/uL (4.8-10.8)
[2022-11-12 04:40] LABS: CREATININE 5.9 mg/dL (0.5-1.5); CRP QUANTITATIVE 102.6 mg/L (0.00-9.0); MAGNESIUM 1.7 mg/dL (1.80-2.40); PHOSPHORUS 4.6 mg/dL (2.5-4.9); POTASSIUM 3.6 mmol/L (3.5-5.1)
[2022-11-12 05:03] LABS: B-TYPE NATRIURETIC PEPTIDE > 5000 pg/mL (0-100)
[2022-11-12] MEDS: NALOXONE HCL 0.4 MG/1 ML ML IVP SCH (07:30)
[2022-11-12] MEDS: PANTOPRAZOLE 40 MG/VIAL IVP SCH (08:04)
[2022-11-12] MEDS: 0.9%NACL 10ML VIAL IV SCH ×2 (08:04→20:22)
[2022-11-12] MEDS: ASPIRIN 81 MG EC TAB PO SCH (08:05)
[2022-11-12] MEDS: CLOPIDOGREL 75MG TAB PO SCH (08:05)
[2022-11-12] MEDS: ENOXAPARIN SODIUM 30 MG/0.3 ML SQ SCH (08:06)
[2022-11-12] MEDS: MIDODRINE HCL 5 MG TABLET PO SCH ×4 (08:06→20:23)
[2022-11-12] MEDS: INSULIN HUMULIN R 100 UNIT/ML 3ML SQ SCH ×4 (08:36→20:04)
[2022-11-12] MEDS ORDERED: MIDODRINE HCL 5 MG TABLET PO ONE (09:00)
[2022-11-12] MEDS: CEFTRIAXONE 1G VIAL IVPB SCH (20:22)
[2022-11-12] MEDS: ATORVASTATIN 40 MG TABLET PO SCH (20:22)
[2022-11-13] VITALS (97 sets, daily range): BP systolic 68–162; BP diastolic 25–112
[2022-11-13 05:01] LABS: BASOPHILS % (AUTO) 1.1 % (0.0-5.0); EOSINOPHILS % (AUTO) 23.6 % (0.0-8.0); HEMATOCRIT 29.8 % (42-54); LYMPHOCYTES % (AUTO) 18.1 % (21.0-51.0); MEAN CORPUSCULAR HEMOGLOBIN 31.3 pg (27.0-33.0); MEAN CORPUSCULAR HGB CONC 31.5 g/dL (32.0-36.0); MEAN CORPUSCULAR VOLUME 99.3 fL (79-99); MONOCYTES % (AUTO) 11.5 % (3.0-13.0); NEUTROPHILS % (AUTO) 43.3 % (40.0-77.0); NUCLEATED RED BLOOD CELLS 1.3 % (0.0-0.19); PLATELET COUNT (AUTO) 108 K/uL (130-400); RED CELL DISTRIBUTION WIDTH 17.4 % (11.0-15.5); WHITE BLOOD COUNT (AUTO) 6.2 K/uL (4.8-10.8)
[2022-11-13 05:23] LABS: CREATININE 6.9 mg/dL (0.5-1.5); MAGNESIUM 1.7 mg/dL (1.80-2.40); PHOSPHORUS 5.8 mg/dL (2.5-4.9); POTASSIUM 3.8 mmol/L (3.5-5.1)
[2022-11-13] MEDS: INSULIN HUMULIN R 100 UNIT/ML 3ML SQ SCH ×4 (07:30→20:00)
[2022-11-13] MEDS: NALOXONE HCL 0.4 MG/1 ML ML IVP SCH (07:30)
[2022-11-13] MEDS: ASPIRIN 81 MG EC TAB PO SCH (08:53)
[2022-11-13] MEDS: CLOPIDOGREL 75MG TAB PO SCH (08:53)
[2022-11-13] MEDS: MIDODRINE HCL 5 MG TABLET PO SCH ×3 (08:53→20:06)
[2022-11-13] MEDS: PANTOPRAZOLE 40 MG/VIAL IVP SCH (08:53)
[2022-11-13] MEDS: ENOXAPARIN SODIUM 30 MG/0.3 ML SQ SCH (08:54)
[2022-11-13] MEDS: 0.9%NACL 10ML VIAL IV SCH ×2 (08:54→20:06)
[2022-11-13] MEDS: CEFTRIAXONE 1G VIAL IVPB SCH (19:59)
[2022-11-13] MEDS: ATORVASTATIN 40 MG TABLET PO SCH (19:59)
[2022-11-14] VITALS (93 sets, daily range): BP systolic 86–142; BP diastolic 15–85
[2022-11-14 03:52] LABS: BASOPHILS % (AUTO) 0.8 % (0.0-5.0); EOSINOPHILS % (AUTO) 17.5 % (0.0-8.0); HEMATOCRIT 30.7 % (42-54); LYMPHOCYTES % (AUTO) 16.1 % (21.0-51.0); MEAN CORPUSCULAR HEMOGLOBIN 31.9 pg (27.0-33.0); MEAN CORPUSCULAR HGB CONC 31.9 g/dL (32.0-36.0); MONOCYTES % (AUTO) 9.5 % (3.0-13.0); NEUTROPHILS % (AUTO) 55.2 % (40.0-77.0); NUCLEATED RED BLOOD CELLS 0.6 % (0.0-0.19); PLATELET COUNT (AUTO) 88 K/uL (130-400); RED BLOOD CELL COUNT(AUTO) 3.07 MIL/uL (4.50-6.20); RED CELL DISTRIBUTION WIDTH 17.8 % (11.0-15.5); WHITE BLOOD COUNT (AUTO) 6.6 K/uL (4.8-10.8)
[2022-11-14 04:08] LABS: CREATININE 5.6 mg/dL (0.5-1.5); MAGNESIUM 1.6 mg/dL (1.80-2.40); PHOSPHORUS 4.4 mg/dL (2.5-4.9); POTASSIUM 3.6 mmol/L (3.5-5.1)
[2022-11-14] MEDS: MAGNESIUM 2GM PREMIX 50ML 50 ML IV PRN (04:52)
[2022-11-14] MEDS: INSULIN HUMULIN R 100 UNIT/ML 3ML SQ SCH ×4 (06:05→20:40)
[2022-11-14] MEDS: NALOXONE HCL 0.4 MG/1 ML ML IVP SCH (07:30)
[2022-11-14] MEDS: ASPIRIN 81 MG EC TAB PO SCH (07:41)
[2022-11-14] MEDS: 0.9%NACL 10ML VIAL IV SCH ×2 (07:41→20:33)
[2022-11-14] MEDS: CLOPIDOGREL 75MG TAB PO SCH (07:41)
[2022-11-14] MEDS: ENOXAPARIN SODIUM 30 MG/0.3 ML SQ SCH (07:41)
[2022-11-14] MEDS: PANTOPRAZOLE 40 MG/VIAL IVP SCH (07:41)
[2022-11-14] MEDS: MIDODRINE HCL 5 MG TABLET PO SCH ×3 (07:43→20:33)
[2022-11-14] MEDS ORDERED: POLYETHYLENE GLYCOL 3350 17 GM POWD.PACK ONE (09:52)
[2022-11-14] MEDS: POLYETHYLENE GLYCOL 3350 17 GM POWD.PACK PO SCH (09:53)
[2022-11-14] MEDS: ONDANSETRON 4MG INJ IVP PRN (10:59)
[2022-11-14] MEDS ORDERED: LACTULOSE 20 GM/30 ML UDCUP PO PRN (15:30)
[2022-11-14] MEDS: CEFTRIAXONE 1G VIAL IVPB SCH (20:32)
[2022-11-14] MEDS: ATORVASTATIN 40 MG TABLET PO SCH (20:33)
[2022-11-15] VITALS (88 sets, daily range): BP systolic 79–169; BP diastolic 21–108
[2022-11-15 04:07] LABS: HEMATOCRIT 28.2 % (42-54); MEAN CORPUSCULAR HEMOGLOBIN 31.4 pg (27.0-33.0); MEAN CORPUSCULAR HGB CONC 31.6 g/dL (32.0-36.0); MEAN CORPUSCULAR VOLUME 99.6 fL (79-99); PLATELET COUNT (AUTO) 51 K/uL (130-400); RED BLOOD CELL COUNT(AUTO) 2.83 MIL/uL (4.50-6.20); RED CELL DISTRIBUTION WIDTH 17.8 % (11.0-15.5); WHITE BLOOD COUNT (AUTO) 3.5 K/uL (4.8-10.8)
[2022-11-15 04:16] LABS: CREATININE 6.9 mg/dL (0.5-1.5); MAGNESIUM 2.2 mg/dL (1.80-2.40); POTASSIUM 3.9 mmol/L (3.5-5.1)
[2022-11-15] MEDS: INSULIN HUMULIN R 100 UNIT/ML 3ML SQ SCH ×4 (06:32→21:00)
[2022-11-15] MEDS: MIDODRINE HCL 5 MG TABLET PO SCH ×3 (08:48→21:21)
[2022-11-15] MEDS: PANTOPRAZOLE 40 MG/VIAL IVP SCH (08:48)
[2022-11-15] MEDS: 0.9%NACL 10ML VIAL IV SCH ×2 (08:48→21:21)
[2022-11-15] MEDS: POLYETHYLENE GLYCOL 3350 17 GM POWD.PACK PO SCH (08:51)
[2022-11-15] MEDS: ENOXAPARIN SODIUM 30 MG/0.3 ML SQ SCH (09:00)
[2022-11-15] MEDS: ASPIRIN 81 MG EC TAB PO SCH (09:00)
[2022-11-15] MEDS: CLOPIDOGREL 75MG TAB PO SCH (09:00)
[2022-11-15] MEDS: EPOETIN ALFA-EPBX (NON-ESRD) 10,000 UNIT/ML VIAL SQ SCH (09:20)
[2022-11-15] MEDS ORDERED: ATROPINE 1MG SYG IVP PRN (10:00)
[2022-11-15] MEDS ORDERED: DIPHENHYDRAMINE HCL 25 MG CAPSULE PO PRN (11:30)
[2022-11-15] MEDS: ATORVASTATIN 40 MG TABLET PO SCH (21:21)
[2022-11-15] MEDS: CEFTRIAXONE 1G VIAL IVPB SCH (21:21)
[2022-11-16] VITALS (53 sets, daily range): BP systolic 62–153; BP diastolic 19–90
[2022-11-16 05:38] LABS: HEMATOCRIT 28.9 % (42-54); MEAN CORPUSCULAR HEMOGLOBIN 31.6 pg (27.0-33.0); MEAN CORPUSCULAR HGB CONC 30.8 g/dL (32.0-36.0); MEAN CORPUSCULAR VOLUME 102.5 fL (79-99); PLATELET COUNT (AUTO) 43 K/uL (130-400); RED BLOOD CELL COUNT(AUTO) 2.82 MIL/uL (4.50-6.20); RED CELL DISTRIBUTION WIDTH 17.7 % (11.0-15.5); WHITE BLOOD COUNT (AUTO) 3.2 K/uL (4.8-10.8)
[2022-11-16 05:56] LABS: ALBUMIN 2.6 g/dL (3.5-5.0); CREATININE 5.5 mg/dL (0.5-1.5); TOTAL PROTEIN, SERUM 6.4 g/dL (6.0-8.3)
[2022-11-16] MEDS: INSULIN HUMULIN R 100 UNIT/ML 3ML SQ SCH ×4 (07:30→20:00)
[2022-11-16] MEDS: MIDODRINE HCL 5 MG TABLET PO SCH ×3 (08:49→20:50)
[2022-11-16] MEDS: PANTOPRAZOLE 40 MG/VIAL IVP SCH (08:49)
[2022-11-16] MEDS: CLOPIDOGREL 75MG TAB PO SCH (09:00)
[2022-11-16] MEDS: ENOXAPARIN SODIUM 30 MG/0.3 ML SQ SCH (09:00)
[2022-11-16] MEDS: ASPIRIN 81 MG EC TAB PO SCH (09:00)
[2022-11-16] MEDS: POLYETHYLENE GLYCOL 3350 17 GM POWD.PACK PO SCH (09:00)
[2022-11-16] MEDS: 0.9%NACL 10ML VIAL IV SCH ×2 (09:09→20:02)
[2022-11-16] MEDS: ATORVASTATIN 40 MG TABLET PO SCH (19:59)
[2022-11-16] MEDS: CEFTRIAXONE 1G VIAL IVPB SCH (19:59)
[2022-11-17] VITALS: BP 105/55
[2022-11-17 04:00] VITALS: BP 102/58
[2022-11-17] MEDS: INSULIN HUMULIN R 100 UNIT/ML 3ML SQ SCH ×4 (06:53→21:00)
[2022-11-17 08:05] VITALS: BP 148/51
[2022-11-17 08:11] LABS: EOSINOPHILS % (AUTO) 19.7 % (0.0-8.0); HEMATOCRIT 31.5 % (42-54); LYMPHOCYTES % (AUTO) 27.9 % (21.0-51.0); MEAN CORPUSCULAR HEMOGLOBIN 31.5 pg (27.0-33.0); MEAN CORPUSCULAR HGB CONC 31.4 g/dL (32.0-36.0); MEAN CORPUSCULAR VOLUME 100.3 fL (79-99); MONOCYTES % (AUTO) 23.1 % (3.0-13.0); PLATELET COUNT (AUTO) 43 K/uL (130-400); RED BLOOD CELL COUNT(AUTO) 3.14 MIL/uL (4.50-6.20); RED CELL DISTRIBUTION WIDTH 17.3 % (11.0-15.5); WHITE BLOOD COUNT (AUTO) 2.9 K/uL (4.8-10.8)
[2022-11-17 08:23] LABS: POTASSIUM 4.4 mmol/L (3.5-5.1)
[2022-11-17 09:01] LABS: BASOPHILS % (MANUAL) 1 % (0-2); EOSINOPHILS % (MANUAL) 22 % (1-6); LYMPHOCYTES % (MANUAL) 34 % (22-44); MAN.DIFF COMMENT-IMPRESSION MANUAL DIFFERENTIAL; MONOCYTES % (MANUAL) 17 % (2-9); PLATELET MORPHOLOGY COMMENT MARKED DECREASE; SEGMENTED NEUTROPHILS % 26 % (40-70)
[2022-11-17] MEDS: MIDODRINE HCL 5 MG TABLET PO SCH ×3 (10:11→21:00)
[2022-11-17] MEDS: PANTOPRAZOLE 40 MG/VIAL IVP SCH (10:11)
[2022-11-17] MEDS: POLYETHYLENE GLYCOL 3350 17 GM POWD.PACK PO SCH (10:11)
[2022-11-17] MEDS: 0.9%NACL 10ML VIAL IV SCH ×2 (10:12→21:00)
[2022-11-17 11:22] VITALS: BP 155/74
[2022-11-17 16:42] VITALS: BP 135/49
[2022-11-17 19:21] VITALS: BP 116/72
[2022-11-17] MEDS: CEFTRIAXONE 1G VIAL IVPB SCH (20:00)
[2022-11-17] MEDS: ATORVASTATIN 40 MG TABLET PO SCH (21:00)
[2022-11-18] VITALS (18 sets, daily range): BP systolic 101–133; BP diastolic 50–65
[2022-11-18] MEDS: INSULIN HUMULIN R 100 UNIT/ML 3ML SQ SCH ×4 (06:30→21:00)
[2022-11-18 08:04] LABS: HEMATOCRIT 30.2 % (42-54); MEAN CORPUSCULAR HGB CONC 30.8 g/dL (32.0-36.0); MEAN CORPUSCULAR VOLUME 103.8 fL (79-99); RED BLOOD CELL COUNT(AUTO) 2.91 MIL/uL (4.50-6.20); RED CELL DISTRIBUTION WIDTH 17.2 % (11.0-15.5)
[2022-11-18 08:34] LABS: MAGNESIUM 2.1 mg/dL (1.80-2.40); POTASSIUM 4.4 mmol/L (3.5-5.1)
[2022-11-18 08:42] LABS: CREATININE 8.2 mg/dL (0.5-1.5)
[2022-11-18] MEDS: 0.9%NACL 10ML VIAL IV SCH ×2 (09:00→19:56)
[2022-11-18] MEDS: MIDODRINE HCL 5 MG TABLET PO SCH ×3 (09:00→19:56)
[2022-11-18] MEDS: POLYETHYLENE GLYCOL 3350 17 GM POWD.PACK PO SCH (09:00)
[2022-11-18] MEDS: PANTOPRAZOLE 40 MG/VIAL IVP SCH (14:43)
[2022-11-18] MEDS: EPOETIN ALFA-EPBX (NON-ESRD) 10,000 UNIT/ML VIAL SQ SCH (14:44)
[2022-11-18] MEDS: CEFTRIAXONE 1G VIAL IVPB SCH (19:55)
[2022-11-18] MEDS: ATORVASTATIN 40 MG TABLET PO SCH (19:56)
[2022-11-19 00:21] VITALS: BP 122/50
[2022-11-19] MEDS ORDERED: FONDAPARINUX SODIUM 2.5 MG/0.5 ML SQ SCH (09:00)
== END 2022-11-19 02:20 | DRG 871 ==
LOC: EDH 16:08 → OBSVTOIN 18:50 → EDHIP 18:50 → 2CH 11-07 13:43 → 2DH 11-16 23:35
PROVIDERS: ADMIT Internal Medicine Infectious Disease; ATTEND Internal Medicine Infectious Disease
PROC: 5A1D70Z Performance of Urinary Filtration, Intermittent, Less than 6 Hours Per Day (ICD-10-PCS; 2022-11-06)
PROC: 5A09457 Assistance with Respiratory Ventilation, 24-96 Consecutive Hours, Continuous Positive Airway Pressure (ICD-10-PCS; 2022-11-06)
PROC: B246ZZ4 Ultrasonography of Right and Left Heart, Transesophageal (ICD-10-PCS; principal; 2022-11-09)
PROC: 0DBK8ZZ Excision of Ascending Colon, Via Natural or Artificial Opening Endoscopic (ICD-10-PCS; 2022-11-10)
PROC: 0DBL8ZX Excision of Transverse Colon, Via Natural or Artificial Opening Endoscopic, Diagnostic (ICD-10-PCS; 2022-11-10)
PROC: 0DBH8ZZ Excision of Cecum, Via Natural or Artificial Opening Endoscopic (ICD-10-PCS; 2022-11-10)
PROC: 0W3P8ZZ Control Bleeding in Gastrointestinal Tract, Via Natural or Artificial Opening Endoscopic (ICD-10-PCS; 2022-11-10)
PROC: 0DJ08ZZ Inspection of Upper Intestinal Tract, Via Natural or Artificial Opening Endoscopic (ICD-10-PCS; 2022-11-10)
PROC: 5A09357 Assistance with Respiratory Ventilation, Less than 24 Consecutive Hours, Continuous Positive Airway Pressure (ICD-10-PCS; 2022-11-10)
PROC: 5A1D70Z Performance of Urinary Filtration, Intermittent, Less than 6 Hours Per Day (ICD-10-PCS; 2022-11-11)
PROC: 5A1D70Z Performance of Urinary Filtration, Intermittent, Less than 6 Hours Per Day (ICD-10-PCS; 2022-11-13)
PROC: 5A1D70Z Performance of Urinary Filtration, Intermittent, Less than 6 Hours Per Day (ICD-10-PCS; 2022-11-15)
DX: A40.8 Other streptococcal sepsis (principal); E11.10 Type 2 diabetes mellitus with ketoacidosis without coma; I21.A1 Myocardial infarction type 2; R65.21 Severe sepsis with septic shock; N18.6 End stage renal disease; I50.23 Acute on chronic systolic (congestive) heart failure; R57.0 Cardiogenic shock; E87.1 Hypo-osmolality and hyponatremia; G93.40 Encephalopathy, unspecified; C18.9 Malignant neoplasm of colon, unspecified; I13.2 Hypertensive heart and chronic kidney disease with heart failure and with stage 5 chronic kidney disease, or end stage renal disease; I42.0 Dilated cardiomyopathy; K63.5 Polyp of colon; I25.10 Atherosclerotic heart disease of native coronary artery without angina pectoris; K29.00 Acute gastritis without bleeding; K44.9 Diaphragmatic hernia without obstruction or gangrene; K31.84 Gastroparesis; E11.43 Type 2 diabetes mellitus with diabetic autonomic (poly)neuropathy; E78.5 Hyperlipidemia, unspecified; D63.1 Anemia in chronic kidney disease; D69.6 Thrombocytopenia, unspecified; E11.22 Type 2 diabetes mellitus with diabetic chronic kidney disease; E66.01 Morbid (severe) obesity due to excess calories; E83.39 Other disorders of phosphorus metabolism; E86.0 Dehydration; I08.3 Combined rheumatic disorders of mitral, aortic and tricuspid valves; I25.5 Ischemic cardiomyopathy; K21.00 Gastro-esophageal reflux disease with esophagitis, without bleeding; Z66 Do not resuscitate; Z87.891 Personal history of nicotine dependence; Z95.2 Presence of prosthetic heart valve; Z83.3 Family history of diabetes mellitus; Z82.49 Family history of ischemic heart disease and other diseases of the circulatory system; Z86.73 Personal history of transient ischemic attack (TIA), and cerebral infarction without residual deficits; Z99.2 Dependence on renal dialysis; Z90.49 Acquired absence of other specified parts of digestive tract
CPT/HCPCS: 36415; 36600; 43235; 45380; 45381; 45385; 71045; 80048; 80053; 80202; 82010; 82140; 82378; 82435; 82533; 82550; 82803; 82947; 82948; 83036; 83605; 83690; 83735; 83874; 83880; 84100; 84132; 84145; 84295; 84443; 84484; 85018; 85025; 85027; 85610; 85651; 85730; 86022; 86140; 86316; 86704; 86706; 86757; 87040; 87077; 87186; 87340; 87635; 87804; 90935; 93005; 93306; 93312; 94660; 97039; A4606; C1751; C1894; C9113; G0378; G9654; J0696; J1644; J1650; J1815; J2001; J2175; J2250; J2310; J2370; J2405; J2704; J3370; J3475; J3480; J3490; J7030; J7050; P9046

== ENCOUNTER 2023-10-10 10:32 | Emergency (ER) | payer MEDICARE ==
[~2023-10-10] VITALS: Ht 167.6 cm; Wt 83.9 kg
[~2023-10-10 10:32] MED LIST changes: +ALLO100T PO; -AURYXIA PO; +BUDE10.27 IH; +CYAN100099 PO; -FEBU80TA3 PO; -FENO145T26 PO; +FOLI0.8T3 PO; +GLIP5TAB15 PO; -INSU100I45 SQ; -INSU100V12 SQ; -ISOS30TA92 PO; +MIDO5TAB4 PO; +MULT-1203 PO; +MUPI22OI2 TP; +OMEP40CA21 PO; -ROSU10TA28 PO; +ROSU20TA73 PO; -SACU1TAB PO; +SEVE800T27 PO
[2023-10-10] MEDS: 0.9%NACL 1000ML 1,000 ML IV ONE (11:06)
[2023-10-10 11:22] LABS: BASOPHILS # (AUTO) 0.08 K/uL (0.00-0.20); BASOPHILS % (AUTO) 1.5 % (0.0-5.0); EOSINOPHILS # (AUTO) 0.44 K/uL (0.00-0.70); EOSINOPHILS % (AUTO) 8.4 % (0.0-8.0); HEMATOCRIT 27.6 % (42-54); IMMATURE GRANULOCYTE ABSOLUTE 0.02 K/uL (0-1); LYMPHOCYTES # (AUTO) 0.8 K/uL (1.0-4.8); LYMPHOCYTES % (AUTO) 15.7 % (21.0-51.0); MEAN CORPUSCULAR HEMOGLOBIN 33.2 pg (27.0-33.0); MEAN CORPUSCULAR VOLUME 100.7 fL (79-99); MONOCYTES # (AUTO) 0.6 K/uL (0.1-1.0); MONOCYTES % (AUTO) 10.7 % (3.0-13.0); NEUTROPHILS # (AUTO) 3.3 K/uL (1.8-7.7); NEUTROPHILS % (AUTO) 63.3 % (40.0-77.0); PLATELET COUNT (AUTO) 86 K/uL (130-400); RED BLOOD CELL COUNT(AUTO) 2.74 MIL/uL (4.50-6.20); RED CELL DISTRIBUTION WIDTH 17.4 % (11.0-15.5); WHITE BLOOD COUNT (AUTO) 5.2 K/uL (4.8-10.8)
[2023-10-10 11:34] LABS: CREATININE 3.9 mg/dL (0.5-1.3); POTASSIUM 3.9 mmol/L (3.5-5.1)
[2023-10-10 11:40] LABS: BILIRUBIN,TOTAL 2.3 mg/dL (0.2-1.0); TOTAL PROTEIN, SERUM 8.3 g/dL (6.0-8.3)
[2023-10-10] MEDS: CEFTRIAXONE 2GM VIAL IVPB ONE (16:26)
[2023-10-10] MEDS ORDERED: CLINDAMYCIN IVPB 900MG/50ML 50 ML IV SCH (16:30)
[2023-10-10] MEDS ORDERED: MUPI22O TP (16:51)
[2023-10-10] MEDS ORDERED: CLINDAMYCIN IVPB 900MG/50ML 50 ML IV ONE (16:53)
[2023-10-10 17:17] VITALS: BP 116/62; PULSE 87; RESP 18; O2SAT 97
== END 2023-10-10 17:20 | disposition home or self-care (01) ==
LOC: EDH 10:32
DX: L97.429 Non-pressure chronic ulcer of left heel and midfoot with unspecified severity (principal); I12.0 Hypertensive chronic kidney disease with stage 5 chronic kidney disease or end stage renal disease; E11.22 Type 2 diabetes mellitus with diabetic chronic kidney disease; R74.02 Elevation of levels of lactic acid dehydrogenase [LDH]; N18.6 End stage renal disease; I21.9 Acute myocardial infarction, unspecified; D63.1 Anemia in chronic kidney disease; Z79.82 Long term (current) use of aspirin; Z79.899 Other long term (current) drug therapy; Z98.890 Other specified postprocedural states; Z88.8 Allergy status to other drugs, medicaments and biological substances; Z88.5 Allergy status to narcotic agent; Z95.0 Presence of cardiac pacemaker; Z99.2 Dependence on renal dialysis; Z20.822 Contact with and (suspected) exposure to COVID-19
CPT/HCPCS: 99285; 96365; 71045; 87426; 84484; 80053; 85025; 87040 ×2; 87077; 87186; 83605 ×2; 36415; 73630; 93005; J7030; J0696; J3490

== ENCOUNTER → 2023-11-04 | Outpatient (CLI) | payer MEDICARE ==
[~2023-11-04] MED LIST changes: +LIDOCAINE HCL 4% LTA SOL 4 ML VIAL TP ONE; +MUPI22O TP
== END | disposition home or self-care (01) ==
LOC: WHH 08:03
PROVIDERS: ATTEND Nurse Practitioner Family
DX: E11.621 Type 2 diabetes mellitus with foot ulcer (principal); L97.512 Non-pressure chronic ulcer of other part of right foot with fat layer exposed; L89.619 Pressure ulcer of right heel, unspecified stage; E11.51 Type 2 diabetes mellitus with diabetic peripheral angiopathy without gangrene; E11.22 Type 2 diabetes mellitus with diabetic chronic kidney disease; I13.2 Hypertensive heart and chronic kidney disease with heart failure and with stage 5 chronic kidney disease, or end stage renal disease; N18.6 End stage renal disease; I50.9 Heart failure, unspecified; K21.9 Gastro-esophageal reflux disease without esophagitis; I25.10 Atherosclerotic heart disease of native coronary artery without angina pectoris; E78.5 Hyperlipidemia, unspecified; Z87.891 Personal history of nicotine dependence; Z79.899 Other long term (current) drug therapy
CPT/HCPCS: 87070; G0463; A6248

== ENCOUNTER → 2023-11-11 | Outpatient (CLI) | payer MEDICARE | END | disposition home or self-care (01) | LOC: WHH 08:10 | PROVIDERS: ATTEND Nurse Practitioner Family | DX: E11.621 Type 2 diabetes mellitus with foot ulcer (principal); L97.512 Non-pressure chronic ulcer of other part of right foot with fat layer exposed; S51.811A Laceration without foreign body of right forearm, initial encounter; L89.619 Pressure ulcer of right heel, unspecified stage; E11.51 Type 2 diabetes mellitus with diabetic peripheral angiopathy without gangrene; E11.22 Type 2 diabetes mellitus with diabetic chronic kidney disease; I13.2 Hypertensive heart and chronic kidney disease with heart failure and with stage 5 chronic kidney disease, or end stage renal disease; N18.6 End stage renal disease; I50.9 Heart failure, unspecified; K21.9 Gastro-esophageal reflux disease without esophagitis; I25.10 Atherosclerotic heart disease of native coronary artery without angina pectoris; E78.5 Hyperlipidemia, unspecified; Z90.49 Acquired absence of other specified parts of digestive tract; Z95.0 Presence of cardiac pacemaker; Z87.891 Personal history of nicotine dependence; Z79.899 Other long term (current) drug therapy; X58.XXXA Exposure to other specified factors, initial encounter; Y93.89 Activity, other specified; Y92.89 Other specified places as the place of occurrence of the external cause; Y99.8 Other external cause status | CPT/HCPCS: G0463; A4450 ==

== ENCOUNTER → 2023-11-25 | Outpatient (CLI) | payer MEDICARE | END | disposition home or self-care (01) | LOC: WHH 08:04 | PROVIDERS: ATTEND Nurse Practitioner Family | DX: E11.621 Type 2 diabetes mellitus with foot ulcer (principal); L97.512 Non-pressure chronic ulcer of other part of right foot with fat layer exposed; E11.51 Type 2 diabetes mellitus with diabetic peripheral angiopathy without gangrene; E11.22 Type 2 diabetes mellitus with diabetic chronic kidney disease; I13.2 Hypertensive heart and chronic kidney disease with heart failure and with stage 5 chronic kidney disease, or end stage renal disease; N18.6 End stage renal disease; I50.9 Heart failure, unspecified; K21.9 Gastro-esophageal reflux disease without esophagitis; I25.10 Atherosclerotic heart disease of native coronary artery without angina pectoris; E78.5 Hyperlipidemia, unspecified; Z90.49 Acquired absence of other specified parts of digestive tract; Z95.0 Presence of cardiac pacemaker; Z79.82 Long term (current) use of aspirin; Z79.01 Long term (current) use of anticoagulants; Z87.891 Personal history of nicotine dependence; Z79.899 Other long term (current) drug therapy | CPT/HCPCS: G0463; A6250; A4450 ==

== ENCOUNTER → 2023-12-02 | Outpatient (CLI) | payer MEDICARE ==
[~2023-12-02] MED LIST changes: -LIDOCAINE HCL 4% LTA SOL 4 ML VIAL TP ONE
== END | disposition home or self-care (01) ==
LOC: WHH 08:01
PROVIDERS: ATTEND Nurse Practitioner Family
DX: E11.621 Type 2 diabetes mellitus with foot ulcer (principal); L97.512 Non-pressure chronic ulcer of other part of right foot with fat layer exposed; L84 Corns and callosities; E11.51 Type 2 diabetes mellitus with diabetic peripheral angiopathy without gangrene; E11.22 Type 2 diabetes mellitus with diabetic chronic kidney disease; I13.2 Hypertensive heart and chronic kidney disease with heart failure and with stage 5 chronic kidney disease, or end stage renal disease; N18.6 End stage renal disease; I50.9 Heart failure, unspecified; E11.69 Type 2 diabetes mellitus with other specified complication; M86.8X7 Other osteomyelitis, ankle and foot; K21.9 Gastro-esophageal reflux disease without esophagitis; I25.10 Atherosclerotic heart disease of native coronary artery without angina pectoris; E78.5 Hyperlipidemia, unspecified; M19.072 Primary osteoarthritis, left ankle and foot; M19.071 Primary osteoarthritis, right ankle and foot; Z87.891 Personal history of nicotine dependence; Z95.0 Presence of cardiac pacemaker; Z79.82 Long term (current) use of aspirin; Z79.01 Long term (current) use of anticoagulants; Z79.899 Other long term (current) drug therapy
CPT/HCPCS: G0463

== ENCOUNTER → 2023-12-03 | Outpatient (CLI) | payer MEDICARE | END | disposition home or self-care (01) | LOC: RAH 13:08 | PROVIDERS: ATTEND Nurse Practitioner Family | DX: M86.8X7 Other osteomyelitis, ankle and foot (principal); E11.621 Type 2 diabetes mellitus with foot ulcer; M19.90 Unspecified osteoarthritis, unspecified site; M19.072 Primary osteoarthritis, left ankle and foot; M19.071 Primary osteoarthritis, right ankle and foot | CPT/HCPCS: 78315; A9503 ==

== ENCOUNTER → 2023-12-16 | Outpatient (CLI) | payer MEDICARE | END | disposition home or self-care (01) | LOC: WHH 07:50 | PROVIDERS: ATTEND Family Medicine | DX: E11.621 Type 2 diabetes mellitus with foot ulcer (principal); L97.512 Non-pressure chronic ulcer of other part of right foot with fat layer exposed; L84 Corns and callosities; E11.69 Type 2 diabetes mellitus with other specified complication; M86.8X7 Other osteomyelitis, ankle and foot; E11.51 Type 2 diabetes mellitus with diabetic peripheral angiopathy without gangrene; E11.22 Type 2 diabetes mellitus with diabetic chronic kidney disease; I13.2 Hypertensive heart and chronic kidney disease with heart failure and with stage 5 chronic kidney disease, or end stage renal disease; N18.6 End stage renal disease; I50.9 Heart failure, unspecified; K21.9 Gastro-esophageal reflux disease without esophagitis; I25.10 Atherosclerotic heart disease of native coronary artery without angina pectoris; E78.5 Hyperlipidemia, unspecified; M19.90 Unspecified osteoarthritis, unspecified site; Z90.49 Acquired absence of other specified parts of digestive tract; Z95.0 Presence of cardiac pacemaker; Z87.891 Personal history of nicotine dependence; Z79.82 Long term (current) use of aspirin; Z79.01 Long term (current) use of anticoagulants; Z79.899 Other long term (current) drug therapy | CPT/HCPCS: G0463; A6250 ==

== ENCOUNTER 2024-01-26 00:45 | Emergency (ER) | payer MEDICARE ==
[~2024-01-26] VITALS: Ht 172.7 cm; Wt 88.5 kg
[2024-01-26] MEDS: LACTATED RINGERS 1000ML 1,000 ML IV ONE (01:26)
[2024-01-26] MEDS: ONDANSETRON 4MG INJ IVP ONE (01:26)
[2024-01-26] MEDS: LOPERAMIDE HCL 2 MG CAP PO ONE (01:27)
[2024-01-26 01:43] LABS: BILIRUBIN,TOTAL 0.7 mg/dL (0.2-1.0); POTASSIUM 5.4 mmol/L (3.5-5.1); TOTAL PROTEIN, SERUM 7.9 g/dL (6.0-8.3)
[2024-01-26 01:45] LABS: CREATININE 8.2 mg/dL (0.5-1.3)
[2024-01-26 02:15] LABS: BASOPHILS # (AUTO) 0.09 K/uL (0.00-0.20); BASOPHILS % (AUTO) 1.4 % (0.0-5.0); EOSINOPHILS # (AUTO) 0.78 K/uL (0.00-0.70); EOSINOPHILS % (AUTO) 12.2 % (0.0-8.0); HEMATOCRIT 30.5 % (42-54); IMMATURE GRANULOCYTE ABSOLUTE 0.02 K/uL (0-1); LYMPHOCYTES # (AUTO) 1.1 K/uL (1.0-4.8); LYMPHOCYTES % (AUTO) 17.8 % (21.0-51.0); MEAN CORPUSCULAR HEMOGLOBIN 32.1 pg (27.0-33.0); MEAN CORPUSCULAR HGB CONC 32.1 g/dL (32.0-36.0); MONOCYTES # (AUTO) 0.6 K/uL (0.1-1.0); MONOCYTES % (AUTO) 9.9 % (3.0-13.0); NEUTROPHILS # (AUTO) 3.7 K/uL (1.8-7.7); NEUTROPHILS % (AUTO) 58.4 % (40.0-77.0); PLATELET COUNT (AUTO) 78 K/uL (130-400); RED BLOOD CELL COUNT(AUTO) 3.05 MIL/uL (4.50-6.20); RED CELL DISTRIBUTION WIDTH 15.5 % (11.0-15.5); WHITE BLOOD COUNT (AUTO) 6.4 K/uL (4.8-10.8)
[2024-01-26] MEDS: DEXTROSE 50%-WATER 50 ML DISP.SYRIN IV ONE (02:26)
[2024-01-26] MEDS: INSULIN humuLIN R 100 UNIT/ML 3ML SQ ONE (02:28)
[2024-01-26 03:23] VITALS: BP 114/59; PULSE 71; RESP 14; TEMP 98.2; O2SAT 96
[2024-02-04] MEDS ORDERED: DAPA5TAB PO (18:01)
[2024-02-04] MEDS ORDERED: APIX2.5T PO (18:01)
[2024-02-04] MEDS ORDERED: CLOP75TA32 PO (18:01)
[2024-02-04] MEDS ORDERED: LEVO25CA4 PO (18:01)
[2024-02-04] MEDS ORDERED: LORA10TA7 PO (18:01)
== END 2024-01-26 03:40 | disposition home or self-care (01) ==
LOC: EDH 00:45
DX: K52.9 Noninfective gastroenteritis and colitis, unspecified (principal); I12.0 Hypertensive chronic kidney disease with stage 5 chronic kidney disease or end stage renal disease; E11.22 Type 2 diabetes mellitus with diabetic chronic kidney disease; N18.6 End stage renal disease; Z99.2 Dependence on renal dialysis; E66.01 Morbid (severe) obesity due to excess calories; E78.00 Pure hypercholesterolemia, unspecified; K21.9 Gastro-esophageal reflux disease without esophagitis; Z79.82 Long term (current) use of aspirin; Z79.899 Other long term (current) drug therapy; Z88.5 Allergy status to narcotic agent; Z95.2 Presence of prosthetic heart valve; Z95.810 Presence of automatic (implantable) cardiac defibrillator
CPT/HCPCS: 99284; 96374; 96361; 82150; 84484; 80053; 83690; 85025; 82948; 36415; J1815; J7120; J7070; J2405; 96372